=== PATIENT | female | born 1985 | race Caucasian/White ===

== ENCOUNTER 2017-02-07 11:49 | Emergency (ER) | payer BC ==
[~2017-02-07] VITALS: Ht 160 cm; Wt 114.2 kg
[~2017-02-07 11:49] MED LIST: FERR1POW PO; LEVO88TA PO; PREN1TAB29
[2017-02-07 11:55] VITALS: TEMP 37; Ht 160 cm; Wt 114.2 kg
[2017-02-07] MEDS ORDERED: MoRPHine SULFATE 10 MG/ML CARP/VIAL IM STA (12:42)
--- NOTE | 2017-02-07 13:10 | DIAGNOSTIC IMAGING REPORT ---
LUMBAR SPINE 5 VIEWS HISTORY: severe right sided lumbar pain COMPARISON: None. FINDINGS: There is no fracture. No subluxation. Disc spaces are preserved. The sacrum is intact. Cholecystectomy. No evidence for spondylolysis. IMPRESSION: No fracture or subluxation within the lumbar spine. Electronically signed by: Nate Keller M.D. 02/07/2017 1:09 PM Dictated Date/Time: 02/07/2017 1:07 PM
--- NOTE | 2017-02-07 13:17 | EMERGENCY ROOM VISIT NOTE ---
History Report prepared by Lamont: Froilan Godoy Under the Supervision of: Dr. Yuriy Hankins M.D. First contact with patient: 12:36 Chief Complaint: BACK PAIN Stated Complaint: BACK PAIN History of Present Illness The patient is a 31 year old female who presents to the Emergency Room with complaints of constant back pain starting this morning. The patient states that she was carrying her son, and then she got some stabbing pain. She states that she drove to work, and she could not get out of the car. She additionally states that she is having some right leg pain in the back of her thigh. The patient denies any abnormal weight gain or weight loss. Source of History: patient Onset: this morning Position: back Quality: stabbing Timing: constant Note: Associated symptoms: Right leg pain Review of Systems All systems have been listed, reviewed, and are negative other than those previously mentioned. Please see Additional Medical History Sheet. Past Medical & Surgical Surgical Problems: (1) H/O laparoscopic adjustable gastric banding Family History Cancer Diabetes mellitus Heart disease Hypertension Social History Smoking Status: Never Smoker Alcohol Use: occasionally Drug Use: none Marital Status: in relationship Occupation Status: employed Current/Historical Medications Scheduled Ibuprofen Tab (Motrin), 600 MG PO Q6H Levothyroxine Sodium (Synthroid), 88 MCG PO DAILY Scheduled PRN Cyclobenzaprine Hcl (Flexeril), 10 MG PO Q8 PRN for back pain Allergies Coded Allergies: Penicillins (Unverified Allergy, Mild, SWELLING THROAT, 02/07/17) Physical Exam Vital Signs Date Time Temp Pulse Resp B/P Pulse Ox O2 Delivery O2 Flow Rate FiO2 02/07/17 16:00 96 20 136/86 98 02/07/17 15:31 96 20 136/86 98 Room Air 02/07/17 13:53 94 18 131/95 97 Room Air 02/07/17 12:36 95 16 126/86 98 Room Air 02/07/17 11:55 37.0 100 14 141/81 100 Room Air Physical Exam GENERAL: Patient awake, alert, oriented x 3. Patient follows commands. Patient does not appear toxic. Patient is adequately hydrated and well- nourished. SKIN: No erythema, pallor, cyanosis or rash HEENT: Normal head, pupils equal, reactive to light and accommodation. LUNGS: Clear to auscultation. No wheezes, no rales, no rhonchi. HEART: No murmurs. No gallops. No rubs ABDOMEN: Obese with a mid abdominal well healed scar. No masses, no rebound, no hepatomegaly or splenomegaly. BACK: Some tenderness and spasm along the right paravertebral lumbar spine. EXTREMITIES: Straight leg raise is negative bilaterally. Deep tendon reflexes are brisk and equal bilaterally. Motor, sensory, and circulatory function are intact distally to both feet. No signs of trauma. No pedal or pretibial edema. No calf or thigh tenderness. NEUROLOGIC: Cranial nerves II-XII within normal limits. No gross motor sensory function deficits. Medical Decision & Procedures ER Provider Diagnostic Interpretation: X ray results are stated below per my interpretation and the radiologist's interpretation. LUMBAR SPINE 5 VIEWS HISTORY: severe right sided lumbar pain COMPARISON: None. FINDINGS: There is no fracture. No subluxation. Disc spaces are preserved. The sacrum is intact. Cholecystectomy. No evidence for spondylolysis. IMPRESSION: No fracture or subluxation within the lumbar spine. Electronically signed by: Nate Keller M.D. 02/07/2017 1:09 PM Dictated Date/Time: 02/07/2017 1:07 PM Medications Administered Medications (Trade) Dose Ordered Sig/Ammy Route Start Time Stop Time Status Last Admin Dose Admin Morphine Sulfate (MoRPHine SULFATE INJ) 10 mg NOW STAT IM 02/07/17 12:42 02/07/17 12:44 DC 02/07/17 12:50 10 MG Cyclobenzaprine HCl (Flexeril Tab) 10 mg ONE ONCE PO 02/07/17 15:45 02/07/17 15:46 DC 02/07/17 16:01 10 MG ED Course 1236: Past medical records reviewed. The patient was evaluated in room C3. A complete history and physical examination was performed. 1242: Morphine Sulfate 10mg IM 1522: Upon reevaluation, the patient appeared to have improvement of her symptoms. I discussed today's findings with her. She verbalized agreement of the treatment plan. She was discharged home. 1545: Flexeril Tab 10mg PO Medical Decision Nurses notes reviewed. Medical history sheet reviewed. Differential diagnosis includes but is not limited to: muscular strain/spasm, sciatica, ruptured nucleus pulposus, cauda equina syndrome Lumbar x-rays reveal no fracture dislocation or subluxation. Disc spaces appear to be maintained. The patient appears to have muscular spasm along with some possible early degenerative changes. The patient will be placed on ibuprofen and Flexeril. She is to apply heat intermittently. She is to follow- up with her family physician. Impression Primary Impression: Back spasm Scribe Attestation The scribe's documentation has been prepared under my direction and personally reviewed by me in its entirety. I confirm that the note above accurately reflects all work, treatment, procedures, and medical decision making performed by me. Departure Information Dispostion Home / Self-Care Prescriptions Cyclobenzaprine Hcl (FLEXERIL) 10 Mg Tab 10 MG PO Q8 Y for back pain, #20 TAB Prov: Yuriy Hankins M.D. 02/07/17 Ibuprofen Tab (MOTRIN) 600 Mg Tab 600 MG PO Q6H, #30 TAB Prov: Yuriy Hankins M.D. 02/07/17 Referrals No Doctor, Assigned (PCP) Forms HOME CARE DOCUMENTATION FORM, IMPORTANT VISIT INFORMATION, Work Instructions Patient Instructions Back How Works, [facility] Additional Instructions 600 mg of ibuprofen every 6 hours until pain has resolved. One Flexeril every 8 hours as needed for back pain/spasm. Apply heat intermittently to your back over the next 3 days. Avoid any heavy lifting for the next week. Off work today and tomorrow. Do not drive or operate machinery while taking Flexeril.
[2017-02-07] MEDS ORDERED: CYCL10TA6 PO (15:02)
[2017-02-07] MEDS ORDERED: IBUP-1427 PO (15:02)
[2017-02-07] MEDS ORDERED: CYCLOBENZAPRINE HCL 5 MG TAB PO ONE (15:45)
[2017-02-07 16:00] VITALS: BP 136/86; PULSE 96; O2SAT 98
== END 2017-02-07 16:00 | disposition home or self-care (01) ==
LOC: EDBD 11:49 → C.EDC 11:51
DX: M62.830 Muscle spasm of back (principal)

== ENCOUNTER → 2017-03-19 | Outpatient (CLI) | payer BC ==
[~2017-03-19] MED LIST changes: -FERR1POW PO; +IBUP-1427 PO; -PREN1TAB29
--- NOTE | 2017-03-19 14:46 | DIAGNOSTIC IMAGING REPORT ---
MRI LUMBAR SPINE W/O CONTRAST CLINICAL HISTORY: LOWER BACK PAIN L4 RADICULOPATHY TECHNIQUE: Sagittal and axial T1, T2 and STIR images were obtained. COMPARISON STUDY: Conventional radiographic study dated 02/05/2017 OBSERVATIONS: The marrow is slightly heterogeneous in appearance without evidence of a focal mass. L1-2: No disc protrusions or extrusions. No evidence of spinal canal or neural foraminal compromise. L2-3: No disc protrusions or extrusions. No evidence of spinal canal or neural foraminal compromise. L3-4: No disc protrusions or extrusions. No evidence of spinal canal or neural foraminal compromise. L4-5: There is a small central disc protrusion with deformity of the anterior aspect the thecal sac. There is no significant foraminal narrowing L5-S1: There is a small central disc protrusion with deformity of the anterior aspect of the thecal sac. There is no significant foraminal narrowing. The conus medullaris and cauda equina appear normal. IMPRESSION: Central disc protrusions at the L4-5, and L5-S1 levels with secondary mild deformity of the anterior aspect of the thecal sac. Electronically signed by: Drake Mahoney M.D. 03/19/2017 2:45 PM Dictated Date/Time: 03/19/2017 2:42 PM
== END | disposition home or self-care (01) ==
LOC: C.MRIBC 13:36
PROVIDERS: ATTEND Family Medicine
DX: M51.26 Other intervertebral disc displacement, lumbar region (principal); M51.27 Other intervertebral disc displacement, lumbosacral region

== ENCOUNTER → 2017-05-25 | Outpatient (CLI) | payer BC ==
[2017-05-29 12:29] LABS: HERPES SIMPLEX CULT SOURCE GENITAL-VULVA; HERPES SIMPLEX VIRUS CULT NOT ISOLATED (NOT ISOLATED)
== END | disposition home or self-care (01) ==
LOC: C.LABSPEC 13:56
PROVIDERS: ATTEND Obstetrics & Gynecology
DX: N76.2 Acute vulvitis (principal)

== ENCOUNTER → 2017-06-22 | Outpatient (CLI) | payer BC ==
[2017-06-22 12:34] LABS: URINE APPEARANCE CLEAR (CLEAR); URINE BILIRUBIN NEG (NEG); URINE COLOR YELLOW; URINE NITRITE NEG (NEG); URINE PH 6.5 (4.5-7.5); URINE SPECIFIC GRAVITY 1.014 (1.000-1.030); UROBILINOGEN NEG (NEG)
[2017-06-22 12:37] LABS: MANUAL MICROSCOPIC REQUIRED? NO; REVIEW REQ? NO
== END | disposition home or self-care (01) ==
LOC: C.LABSPEC 11:45
PROVIDERS: ATTEND Obstetrics & Gynecology
DX: O99.281 Endocrine, nutritional and metabolic diseases complicating pregnancy, first trimester (principal); Z3A.00 Weeks of gestation of pregnancy not specified

== ENCOUNTER → 2017-06-30 | Outpatient (CLI) | payer BC ==
[2017-06-30 10:03] LABS: BASO % 0.3 %; BASO ABS # 0.03 K/uL (0-0.2); COMPLETE YES; HEMATOCRIT 42.1 % (37-47); IG% 0.5 %; LYMPH % 25.2 %; LYMPH ABS # 2.53 K/uL (1.2-3.4); MEAN CELL VOLUME 85.6 fL (80-100); MEAN CORPUSCULAR HEMOGLOBIN 29.3 pg (25-34); MEAN CORPUSCULAR HGB CONC 34.2 g/dl (32-36); MEAN PLATELET VOLUME 10.5 fL (7.4-10.4); MONO % 6.7 %; NEUT % 65.3 %; PLATELET COUNT 359 K/uL (130-400); RED BLOOD COUNT 4.92 M/uL (4.2-5.4); WHITE BLOOD COUNT 10.02 K/uL (4.8-10.8)
== END | disposition home or self-care (01) ==
LOC: C.LAB 08:25
PROVIDERS: ATTEND Obstetrics & Gynecology
DX: O99.281 Endocrine, nutritional and metabolic diseases complicating pregnancy, first trimester (principal); O26.849 Uterine size-date discrepancy, unspecified trimester

== ENCOUNTER 2017-07-09 06:47 | Day surgery (SDC) | payer BC ==
[~2017-07-09] VITALS: Ht 160 cm; Wt 116.0 kg
[~2017-07-09 06:47] MED LIST changes: +DOXYCYCLINE HYCLATE 100 MG CAP PO SCH; +LACTATED RINGER'S 1000ML 1,000 ML IV SCH
[2017-07-09] MEDS ORDERED: MIDAZOLAM HCL 1 MG/ML 2ML VIAL ONE (06:59)
[2017-07-09] MEDS ORDERED: FENTANYL CITRATE INJ 50 MCG/1 ML 2 ML VIAL ONE (06:59)
[2017-07-09] MEDS ORDERED: FENTANYL CITRATE INJ 50 MCG/1 ML 2 ML VIAL IV PRN (07:30)
[2017-07-09] MEDS ORDERED: SCOPOLAMINE 1.5 MG TDSY TD SCH (07:30)
[2017-07-09] MEDS ORDERED: EpHEDrine SULFATE INJ 50 MG/ML AMP IV PRN (07:30)
[2017-07-09] MEDS ORDERED: ATROPINE SULFATE 0.1 MG/ML 5ML SYR IV PRN (07:30)
[2017-07-09] MEDS ORDERED: HYDROmorphone INJ 1 MG/ML SYR IV PRN (07:30)
[2017-07-09] MEDS ORDERED: PROMETHAZINE HCL INJ 12.5 MG in SODIUM CHLORIDE 0.9% 50ML 50 ML IV PRN (07:30)
[2017-07-09] MEDS ORDERED: ONDANSETRON INJ 2 MG/ML 2 ML VIAL IV PRN (07:30)
[2017-07-09 07:38] VITALS: BP 126/73; PULSE 90; TEMP 37; O2SAT 99; Ht 160 cm; Wt 116.0 kg
[2017-07-09] MEDS ORDERED: CHECK SCOPOLAMINE PATCH PLACEMENT SCH (08:00)
--- NOTE | 2017-07-09 08:33 | History & Physical Bridge Note ---
H&P Re-Evaluation Bridge Note: I have examined the patient, reviewed the History & Physical and in the interval since the performance of the History & Physical I have noted the following changes of clinical significance: No changes noted
[2017-07-09] MEDS ORDERED: METHYLERGONOVINE MALEATE 0.2 MG/ML AMP ONE (09:23)
[2017-07-09] MEDS ORDERED: LACTATED RINGER'S 1000ML 1,000 ML IV SCH (09:40)
--- NOTE | 2017-07-09 09:40 | [facility] Post Operative Brief Note ---
Immediate Operative Summary Operative Date Jul 09, 2017. Pre-Operative Diagnosis Missed Post-Operative Diagnosis Missed Procedure(s) Performed Dilation and Evacuation of Uterine Contents Surgeon Dr. Janice Calero Compliance Assistant Surgeon(s) None Estimated Blood Loss 200ml Findings uterus about 8 weeks size, sounded to 8cm, poc removed. Fluids (cc crystalloids) 1000cc Specimens A. Products of Conception Drains none Anesthesia gett Complication(s) None Disposition Recovery Room / PACU
--- NOTE | 2017-07-09 09:42 | Discharge Instructions ---
Discharge Instructions Date of Service Jul 09, 2017. Visit Reason for Visit: Missed Discharge Discharge Diagnosis / Problem: s/p D&E Discharge Goals Goal(s): Specific goals Activity Recommendations Activity Limitations: per Instructions/Follow-up section Anesthesia . Post Anesthesia Instructions: If you have had General Anesthesia or IV Sedation: * Do not drive today. * Resume driving when surgeon permits. * Do not make important decisions or sign legal documents today. * Call surgeon for: 1. Temperature elevations greater than 101 degrees F. 2. Uncontrollable pain. 3. Excessive bleeding. 4. Persistent nausea and vomiting. 5. Medication intolerance (nausea, vomiting or rash). * For nausea and vomiting use only clear liquids such as: tea, soda, bouillon until nausea subsides, then gradually increase diet as tolerated. * If you have any concerns or questions, call your surgeon's office. If physician is unavailable and it is an emergency, call 911 or go to the nearest emergency room. . Instructions / Follow-Up Instructions / Follow-Up ACTIVITY RECOMMENDATIONS: * Avoid tampons, douching, hot tubs, pools, and intercourse until bleeding has stopped. * May shower as usual. * No strenuous activity for 24-48 hours. After 24-48 hours, you may do anything you feel like doing (driving and sports are okay). SPECIAL CARE INSTRUCTIONS: Special Diet: * Mild nausea may occur in the immediate post-operative period. * Take clear liquids such as tea, cola or bouillon until all nausea has subsided; you may then resume your normal diet. Special Care: * Light bleeding and vaginal spotting can last from a few days to 3-4 weeks. Call your doctor if bleeding becomes heavier than the heaviest part of your period. * Check your temperature twice a day for one week. If it goes above 100.4 degrees Fahrenheit (38.0 Celsius), notify your doctor. * Call your doctor's office for an appointment for 6 weeks after your surgery. FOLLOW-UP VISIT: Call your doctor's office for an appointment for 6 weeks after your surgery. Diet Recommendations Recommended Home Diet: no limitations, resume previous diet Procedures Procedures Performed: Dilation and Evacuation of Uterine Contents Pending Studies Studies pending at discharge: no Medical Emergencies . Who to Call and When: Medical Emergencies: If at any time you feel your situation is an emergency, please call 911 immediately. . Non-Emergent Contact Non-Emergency issues call your: Follow Up Rep . . "Provider Documentation" section prepared by Janice Calero. .
[2017-07-09] MEDS ORDERED: OXYCODONE/ACETAMINOPHEN 5-325 TAB PO PRN ×2 (09:45)
[2017-07-09] MEDS ORDERED: IBUPROFEN 600 MG TAB PO PRN (09:45)
[2017-07-09] MEDS ORDERED: ACETAMINOPHEN 650 MG SUPP PR PRN (09:45)
[2017-07-09] MEDS ORDERED: KETOROLAC TROMETHAMINE 30 MG/ML VIAL IV. PRN ×2 (09:45)
[2017-07-09] MEDS ORDERED: IBUPROFEN 200 MG TAB PO PRN (09:45)
[2017-07-09] MEDS ORDERED: MoRPHine SULFATE 2 MG/ML CARP IV PRN ×2 (09:45)
[2017-07-09] MEDS ORDERED: ACETAMINOPHEN 325 MG TAB PO PRN (09:45)
[2017-07-09] MEDS ORDERED: MoRPHine SULFATE 4 MG/ML 1 ML CARP\\VIAL IV PRN (09:45)
[2017-07-09] MEDS ORDERED: PROPOFOL IV EMULSION 10 MG/ML 20 ML VIAL IV ONE (09:51)
[2017-07-09] MEDS ORDERED: ONDANSETRON INJ 2 MG/ML 2 ML VIAL ONE (09:51)
--- NOTE | 2017-07-09 10:09 | OPERATIVE REPORT ---
DATE OF OPERATION: 07/09/2017 PREOPERATIVE DIAGNOSES: Missed . POSTOPERATIVE DIAGNOSIS: Same. PROCEDURE: D&E. SURGEON: Dr. Calero. ANESTHESIA: General per endotracheal tube. ESTIMATED BLOOD LOSS: 200 mL FLUIDS: 1000 mL. URINE OUTPUT: 100 mL clear yellow urine drained from the bladder at the beginning of the procedure. INDICATIONS: The patient is a 32-year-old 3, para 1-0-1-1, who presented with a threatened AB and 7 days later, she had a repeat ultrasound showing a missed AB. She now presents for definitive surgical therapy. FINDINGS: Uterus on exam under anesthesia, she get the uterus approximately 8 weeks and mobile. There are no appreciable adnexal masses. Uterus sounds to 8 cm. Products of conception returned on procedure. COMPLICATIONS: None. DRAINS: None. DISPOSITION: To recovery room in stable condition. DESCRIPTION OF PROCEDURE: The patient was taken to the operating room where she was identified verbally and by bracelet. She was placed in dorsal supine position where general anesthesia induced without difficulty. She was then placed in dorsal lithotomy position in [employer]-cane stirrups and prepped and draped in normal sterile fashion. Timeout was held identifying correct patient, procedure, positioning and preoperative antibiotics. The bladder was drained of urine. A weighted speculum was placed in the posterior vagina. The anterior lip of the cervix was grasped with a single tooth tenaculum. Uterus sounded to 8 cm, dilated to #29 Hegar dilator using an 8 mm curette. The uterine contents were removed via evacuation and the suction evacuator was passed x3, and then the patient was curettaged in 365 degrees without return of significant material. Evacuation and curette was placed with no further removal of tissue. The procedure was thus terminated. The uterus was massaged and the patient was given 0.2 IM Methergine to control hemostasis. Estimated blood loss 200 mL. All sponge, lap and needle counts were correct x2. The patient tolerated the procedure well and was taken to the recovery room in stable condition. I attest to the content of the Intraoperative Record and any orders documented therein. Any exception s are noted below.
[2017-07-09 10:25] VITALS: BP 124/85; PULSE 85; TEMP 36.5; O2SAT 100
[2017-07-09 11:05] VITALS: BP 110/73; PULSE 87; TEMP 36.5; O2SAT 100
--- NOTE | 2017-07-09 11:06 | Anesthesiology Progress Note ---
Anesthesia Post Op Note Date & Time Jul 09, 2017 at 11:06 Vital Signs Pain Intensity: 0 Vital Signs Past 12 Hours Date Time Temp Pulse Resp B/P (MAP) Pulse Ox O2 Delivery O2 Flow Rate FiO2 07/09/17 10:30 36.8 82 16 124/75 100 Room Air 07/09/17 10:20 36.8 78 16 118/67 100 Room Air 07/09/17 10:10 36.8 79 12 130/69 100 Room Air 07/09/17 10:00 98 12 122/70 100 Oxymask 10 07/09/17 09:50 93 12 120/87 100 Oxymask 10 07/09/17 09:40 36.5 109 12 125/84 100 Oxymask 10 07/09/17 07:38 37 90 18 126/73 (90) 99 Room Air Notes Mental Status: alert / awake / arousable, participated in evaluation Pt Amnestic to Procedure: Yes Nausea / Vomiting: adequately controlled Pain: adequately controlled Airway Patency, RR, SpO2: stable & adequate BP & HR: stable & adequate Hydration State: stable & adequate Anesthetic Complications: no major complications apparent
[2017-07-09] MEDS ORDERED: DOXYCYCLINE HYCLATE 100 MG CAP PO SCH (11:30)
== END 2017-07-09 11:25 | disposition home or self-care (01) ==
LOC: C.ACU 06:47
PROVIDERS: ATTEND Obstetrics & Gynecology
DX: O02.1 Missed abortion (principal); E03.9 Hypothyroidism, unspecified; E66.9 Obesity, unspecified; Z90.49 Acquired absence of other specified parts of digestive tract; Z80.0 Family history of malignant neoplasm of digestive organs

== ENCOUNTER → 2017-08-06 | Outpatient (CLI) | payer BC ==
[~2017-08-06] MED LIST changes: -DOXYCYCLINE HYCLATE 100 MG CAP PO SCH; -LACTATED RINGER'S 1000ML 1,000 ML IV SCH
== END | disposition home or self-care (01) ==
LOC: C.LAB1850 11:52
PROVIDERS: ATTEND Obstetrics & Gynecology
DX: Z32.01 Encounter for pregnancy test, result positive (principal)

== ENCOUNTER → 2017-08-08 | Outpatient (CLI) | payer BC | END | disposition home or self-care (01) | LOC: C.LAB1850 16:48 | PROVIDERS: ATTEND Obstetrics & Gynecology | DX: Z32.01 Encounter for pregnancy test, result positive (principal) ==

== ENCOUNTER → 2017-08-31 | Outpatient (CLI) | payer BC ==
[~2017-08-31] MED LIST changes: -IBUP-1427 PO
== END | disposition home or self-care (01) ==
LOC: C.LAB 17:54
PROVIDERS: ATTEND Obstetrics & Gynecology
DX: O02.1 Missed abortion (principal)

== ENCOUNTER → 2018-03-27 | Outpatient (CLI) | payer BC ==
--- NOTE | 2018-03-27 13:05 | DIAGNOSTIC IMAGING REPORT ---
SOFT TISS HEAD/NECK-THYROID HISTORY: Goiter GOITER,NON TOXIC SINGLE THYROID NODULE COMPARISON: 2014 FINDINGS: Right lobe: Maximum dimension 5.8 cm. 3.2 x 1.8 cm heterogeneous lower pole nodule. This is unchanged compared to 2014 Left lobe: Maximum dimension 4.4 cm. No significant nodularity. Isthmus: No nodules. IMPRESSION: Dominant nodule lower aspect right thyroid essentially unchanged compared to a study of 2014 The above report was generated using voice recognition software. It may contain grammatical, syntax or spelling errors. Electronically signed by: Adin Singh M.D. 03/27/2018 1:03 PM Dictated Date/Time: 03/27/2018 1:00 PM
== END | disposition home or self-care (01) ==
LOC: C.ULTR 11:57
PROVIDERS: ATTEND Physician Assistant
DX: E04.1 Nontoxic single thyroid nodule (principal); E03.9 Hypothyroidism, unspecified

== ENCOUNTER → 2018-06-15 | Outpatient (CLI) | payer BC | END | disposition home or self-care (01) | LOC: C.LAB 08:16 | PROVIDERS: ATTEND Internal Medicine Endocrinology, Diabetes & Metabolism | DX: E03.9 Hypothyroidism, unspecified (principal) ==

== ENCOUNTER → 2018-07-02 | Outpatient (CLI) | payer BC | END | disposition home or self-care (01) | LOC: C.PAPS 14:02 | PROVIDERS: ATTEND Obstetrics & Gynecology | DX: N76.2 Acute vulvitis (principal); Z01.419 Encounter for gynecological examination (general) (routine) without abnormal findings ==

== ENCOUNTER 2021-03-07 11:22 | Inpatient (IN) ==
--- NOTE | 2021-02-18 15:44 | PAT Medication Instructions ---
Medication Instructions Date of Service February 18, 2021 Home Medications atorvastatin 40 mg PO QAM ibuprofen 800 mg PO Q6H PRN levothyroxine 75 mcg PO QAM multivitamin 1 tab PO QAM ASK your surgeon for instructions ibuprofen 800 mg PO Q6H PRN DO NOT take the morning of surgery multivitamin 1 tab PO QAM Take morning of surgery With a small sip of water, OTHERWISE NOTHING TO EAT OR DRINK AFTER MIDNIGHT: atorvastatin 40 mg PO QAM levothyroxine 75 mcg PO QAM Other Notes If you have any questions please call us at [phone] or [phone] or [phone] or [phone]
--- NOTE | 2021-02-22 11:15 | Anesthesiology Consultation ---
Date of Service February 22, 2021 Assessment & Plan (1) Encounter for pre-operative examination: - COVID screening: Per assessment on 02/22: Travel screen negative, no known COVID-19 positive contacts or current COVID-19 related symptoms. Surgeon arranging preop COVID testing (scheduled 02/28; [facility]). Awaiting results. - Check test AM DOS Chart Review Chart Review: Acceptable Risk for Surgery and Patient seen in Pre Admission Testing Teaching & Discussion Pre-Anesthesia Teaching/Discussion Notes: Instructed NPO after midnight before surgery,except medications with 15 cc of water. Medication instructions p rovided according to the PAT guidelines. History Surgery Operation Date: 03/07/21 07:45 Proposed Procedures p L5-S1 Decompression Fusion, Spinal Cord Monitoring - Panda Garrett DO Height/Weight Height: 5 ft 3 in Weight: 126.3 kg Allergies Allergy/AdvReac Type Severity Reaction Status Date / Time Penicillins Allergy Mild Throat Verified 02/22/21 11:13 swelling Medications Home Medications Medication Instructions Recorded Confirmed Last Taken atorvastatin 40 mg PO QAM 01/31/21 01/31/21 Unknown ibuprofen 800 mg PO Q6H PRN 01/31/21 01/31/21 Unknown levothyroxine 75 mcg PO QAM 01/31/21 01/31/21 Unknown multivitamin 1 tab PO QAM 01/31/21 01/31/21 Unknown Past Medical History Medical History Anxiety Degenerative disc disease Depression History of migraine Hyperlipidemia Hypothyroidism Morbid obesity Exercise / Class Metabolic Activity II 4-5 Yardwork/Stairs/Walk up hill Past Family History Family History Father Colorectal cancer Mother Hypercholesterolemia Hypertension Denies family history of Ovarian cancer Breast cancer Past Surgical History Surgical History H/O discectomy lumbar History of cholecystectomy History of tooth extraction S/P cholecystectomy S/P dilation and curettage S/P gastric surgery adjustable gastric band placement > subsequent removal S/P tonsillectomy Past Anesthesia History No Hx of Anesthesia Complications (except PONV) and No Family Hx of Anesthesia Complications History of PONV History of PONV (no issue when hx of PONV known beforehand (?pre-treatment)) and Hx of Motion Sickness (+ in back seat of cars) Social History Smoking Status: Never smoker Do You Dip or Chew Tobacco: No Hx Alcohol Use: Yes Alcohol type: hard liquor alcohol intake frequency: holidays/special occasions only Hx Substance Use: Yes substance use type: marijuana Substance Use Type Other:: Medical [employer] card (no use since ) Review of Systems + snoring. No apnea events. Patient denies chest pain, shortness of breath, dyspnea on exertion, fever, chills, cough, wheezing, palpitations. Physical Exam Vital Signs VITALS BP 118/77 P 85 TEMP 983 SP02 97%RA RESP 16 PHYSICAL Full cervical extension range of motion. Full TMJ range of motion. TMD 4 finger breaths Mallampati Score 1 Dentition: missing molar Lungs: clear throughout to auscultation Cardiac: regular rate and rhythm, no murmurs noted Spine: normal Extremities: no edema Thick neck Testing Laboratory Results 02/22/21 11:30 02/22/21 11:30 PT 10.0 Seconds (9.0-12.0) 02/22/21 11:30 INR 1.0 (0.9-1.1) 02/22/21 11:30 APTT 24.8 Seconds (21.0-31.0) 02/22/21 11:30 Urine Color Yellow 02/22/21 11:30 Urine Appearance Clear (Clear) 02/22/21 11:30 Urine pH 7.5 (4.5-7.5) 02/22/21 11:30 Ur Specific [place] 1.011 (1.000-1.030) 02/22/21 11:30 Urine Protein Negative (Negative) 02/22/21 11:30 Urine Glucose (UA) Negative (Negative) 02/22/21 11:30 Urine Ketones Negative (Negative) 02/22/21 11:30 Urine Nitrite Negative (Negative) 02/22/21 11:30 Ur Leukocyte Esterase Negative (Negative) 02/22/21 11:30 Blood Type A Positive 02/22/21 11:30 Antibody Screen NEGATIVE 02/22/21 11:30 Electrocardiogram Date: 10/04/20 Findings: + NSR @ (87) Chest X-Ray Date: 02/22/21 Findings: + NAD
--- NOTE | 2021-02-22 12:06 | XRay Report ---
XR chest Pre-admission PA/Lat CLINICAL HISTORY: Preoperative evaluation. COMPARISON STUDY: Chest radiograph November 09, 2018. FINDINGS: Lung volumes are normal. Lungs are clear. There is no pneumothorax or pleural effusion. Car diac size is normal. Mediastinal contours are normal. There is no evidence for pulmonary edema. IMPRESSION: No acute cardiopulmonary findings. ACT 112: Negative or not required by law. Electronically signed by: Arsenio June M.D. 02/22/2021 12:05 PM
[2021-02-22 13:06] LABS: Basophils # (auto) 0.03 K/uL (0-0.2); Basophils % (auto) 0.3 %; Eosinophils # (auto) 0.22 K/uL (0-0.5); Eosinophils % (auto) 2.5 %; Hematocrit (blood only) 40.6 % (37-47); Hemoglobin 13.6 g/dL (12.0-16.0); Immature Granulocytes # (auto) 0.03 K/uL (0.00-0.02); Immature Granulocytes % (auto) 0.3 %; Lymphocytes # (auto) 2.72 K/uL (1.2-3.4); Mean Corpuscular Hemoglobin 28.5 pg (25-34); Mean Corpuscular Hgb Conc 33.5 g/dL (32-36); Mean Corpuscular Volume 84.9 fL (80-100); Mean Platelet Volume 9.8 fL (7.4-10.4); Monocytes # (auto) 0.66 K/uL (0.11-0.59); Monocytes % (auto) 7.5 %; Neutrophils # (auto) 5.11 K/uL (1.4-6.5); Neutrophils % (auto) 58.4 %; Platelet Count 441 K/uL (130-400); RDW Coefficient of Variation 13.5 % (11.5-14.5); RDW Standard Deviation 42.1 fL (36.4-46.3); Red Blood Count 4.78 M/uL (4.2-5.4); White Blood Count 8.77 K/uL (4.8-10.8)
[2021-02-22 13:11] LABS: Appearance Urine Clear (Clear); Bilirubin Urine Negative (Negative); Blood Urine Negative (Negative); Color Urine Yellow; Glucose Urine UA Negative (Negative); Ketones Urine Negative (Negative); Leukocyte Esterase Urine Negative (Negative); Nitrite Urine Negative (Negative); Protein Urine Negative (Negative); Specific Gravity Urine 1.011 (1.000-1.030); Urobilinogen Urine Negative (Negative); pH Urine 7.5 (4.5-7.5)
[2021-02-22 13:17] LABS: BUN Creatinine Ratio 14.1 (10-20); Calcium 8.5 mg/dl (8.5-10.1); Creatinine Clr Calc Pharmacy 116.8 ml/min; Est GFR (Non-African American) 86.3; Partial Thromboplastin Ratio 0.9; Partial Thromboplastin Time 24.8 Seconds (21.0-31.0); Potassium 4.1 mmol/L (3.5-5.1)
[~2021-03-07 11:22] MED LIST changes: +ACETAMINOPHEN 1000 MG/100 ML IV IV ONE; +ACETAMINOPHEN 500 MG TAB PO SCH; +CLINDAMYCIN 600 MG/54 ML BAG IV SCH; +CeleBREX 200 MG CAP PO SCH; +FAMOTIDINE/PF 20 MG/2 ML VIAL IV ONE; +GABAPENTIN 900 MG DOSE PO SCH; -LEVO88TA PO; +LR 15ML/HR IV SCH
--- NOTE | 2021-03-07 13:02 | History & Physical Bridge Note ---
Date of Service March 07, 2021 History & Physical Bridge Note I have examined the patient, reviewed the History & Physical and in the interval since the performance of the History & Physical I have noted the following changes of clinical significance: no changes noted
--- NOTE | 2021-03-07 13:04 | History & Physical Report ---
Date of Service March 07, 2021 Assessment & Plan (1) Lumbar disc herniation with radiculopathy: Admission and Anticipated Discharge Date Admission Date: L5-S1 decompression fusion History of Present Illness Chief Complaint: Back and left leg pain Primary Care Provider: Carli Reynaga MD This is a 35-year-old female who presents with current persistent back and leg pain. Failing course of nonoperative care is here for surgical invention. Allergies Allergy/AdvReac Type Severity Reaction Status Date / Time Penicillins Allergy Mild Throat Verified 03/07/21 11:43 swelling Home Medications Medication Instructions Recorded Confirmed Type atorvastatin 40 mg PO QAM 01/31/21 03/07/21 History ibuprofen 800 mg PO Q6H PRN 01/31/21 03/07/21 History levothyroxine 75 mcg PO QAM 01/31/21 03/07/21 History multivitamin 1 tab PO QAM 01/31/21 03/07/21 History Past Med/Surg History Medical History Anxiety Degenerative disc disease Depression History of migraine Hyperlipidemia Hypothyroidism Morbid obesity Surgical History H/O discectomy lumbar History of cholecystectomy History of tooth extraction S/P cholecystectomy S/P dilation and curettage S/P gastric surgery adjustable gastric band placement > subsequent removal S/P tonsillectomy Family History Father Colorectal cancer Mother Hypercholesterolemia Hypertension Denies family history of Ovarian cancer Breast cancer Social History Smoking Status: Never smoker Second Hand Exposure: Yes (IN PAST); Do You Dip or Chew Tobacco: No; Tobacco Cessation Education Requested by Patient: No Hx Alcohol Use: Yes Alcohol type: hard liquor Hx Substance Use: Yes Substance Use Type Other:: Medical [employer] card (no use since ) Preferred Language: Bulgarian Communication Ability: Effective Medical Writer Required: No Beliefs That Will Affect Care: None Current Living Situation: Spouse Other Information That Helps Us Care for You: No Feels Safe at Home: Yes Safety Concerns: Feels Safe At This Time Assistive Devices: Glasses Physical Exam Physical Exam: Patient's alert and oriented Heart regular rhythm Lungs clear to auscultation Results & Data ([facility]) Vital Signs (Past 12 Hours) Vital Signs Temp Pulse Resp BP Pulse Ox 03/07/21 11:49 37 C 106 H 20 156/89 H 97
[2021-03-07] MEDS ORDERED: BUPIVACAINE/EPINEPHRINE 0.5% MPF 1:200,000 30 ML VIAL ONE (13:17)
[2021-03-07] MEDS ORDERED: BACITRACIN INJ 50,000 UNIT VIAL ONE (13:18)
[2021-03-07] MEDS ORDERED: GLYCOPYRROLATE 0.2 MG/ML VIAL ONE (13:20)
[2021-03-07] MEDS ORDERED: SUCCINYLCHOLINE CHLORIDE 20 MG/ML 10 ML VIAL IV ONE (13:20)
[2021-03-07] MEDS ORDERED: ONDANSETRON INJ 2 MG/ML 2 ML VIAL ONE (13:20)
[2021-03-07] MEDS ORDERED: NEOSTIGMINE METHYLSULFATE 1 MG/ML 10ML VIAL ONE (13:20)
[2021-03-07] MEDS ORDERED: LIDOCAINE HCL 2% 2 ML VIAL/AMP(20MG/ML) INFIL ONE (13:20)
[2021-03-07] MEDS ORDERED: ePHEDrine sulfate 50 MG/ML AMP ONE (13:20)
[2021-03-07] MEDS ORDERED: DEXAMETHASONE SOD INJ 4 MG/ML VIAL ONE (13:20)
[2021-03-07] MEDS ORDERED: PHENYLEPHRINE HCL 10 MG/ML VIAL ONE (13:20)
[2021-03-07] MEDS ORDERED: fentaNYL citrate 100 MCG/2 ML VIAL ONE (13:20)
[2021-03-07] MEDS ORDERED: MIDAZOLAM HCL 1 MG/ML 2ML VIAL ONE (13:20)
[2021-03-07] MEDS ORDERED: PROPOFOL IV EMULSION 10 MG/ML 20 ML VIAL IV ONE (13:20)
[2021-03-07] MEDS ORDERED: METOCLOPRAMIDE HCL INJ 5 MG/ML 2 ML VIAL ONE (13:28)
[2021-03-07] MEDS ORDERED: SCOPOLAMINE 1 MG TDSY TD ONE (13:31)
[2021-03-07] MEDS ORDERED: HYDROmorphone INJ 2 MG/ML SYR/VIAL ONE (14:05)
[2021-03-07] MEDS ORDERED: FLOSEAL HEMOSTATIC MATRIX 10ML TOP ONE (15:13)
--- NOTE | 2021-03-07 15:28 | Fluoroscopy Report ---
INTRAOPERATIVE RADIOGRAPHS CLINICAL HISTORY: L5-S1 spinal fusion. Fluoroscopy time: 29 seconds. FINDINGS: 2 spot fluoroscopic views of the lumbar spine are presented. There has been discectomy at L 5-S1 with laminectomy and posterior fusion at this level. Interpedicular screws are in place. The ort hopedic hardware appears intact. IMPRESSION: Intraoperative images from L5-S1 spinal fusion as above. Electronically signed by: David Sanchez M.D. 03/07/2021 3:26 PM
--- NOTE | 2021-03-07 15:29 | Operative Report ---
Post Operative Report Pre & Post Diagnosis Operation Date: 03/07/21 12:55 Pre-Op Diagnosis: Recurrent lumbar disc herniation with radiculopathy Morbid obesity Post-Op Diagnosis: Same I identified the patient and participated in the time-out.: Yes Procedure Operation Date: 03/07/21 12:55 Actual Procedures #1 revision decompression with bilateral medial facetectomies and foraminotomies L5-S1. #2 posterior spinal fusion L5-S1. #3 placement posterior instrumentation L5-S1. #4 interbody fusion L5-S1. #5 placed a peek cage 11 x 22 mm at L5-S1. #6 placement locally harvested morselized autograft in the posterior gutters. #7 placement of I factor in the interbody space and infuse combined with master graft in the posterior lateral gutters. Surgeon Panda Garrett, DO Director Of Institutional Research Grecia Farias Estimated Blood Loss 50 Findings See Below The patient is 5 foot 3 inches tall weighing over 124 kg with a BMI in excess of 48. The patient's body habitus did add significant technical difficulty requiring her deepest retractors longus instruments in order to perform her procedure. This added at least 50% increase to the operative time. Specimens None Indications This is a 35-year-old female who presents with above-mentioned diagnosis after failing course of nonoperative care is here for the above-mentioned procedure. Description of Procedure Patient was met with identified informed consent obtained. Patient was then taken to the operative suite underwent a patient placed in a prone position the Miguelito table atop the Gideon frame. All bony prominences well-padded eyes inspected to ensure no external pressure placed upon the. This point the lumbar spine was prepped and draped in normal sterile fashion. Sharp dissection with the assistance of Bovie cautery performed down to and exposing the remaining lamina transverse processes of L5 and S1 level bilaterally. From a caudal cephalad fashion revision complete laminectomy of L5 was performed including bilateral medial facetectomies and foraminotomies addressing all stenosis. I also identified the recurrent disc herniation on the left. This is removed in its entirety. Pedicle screws and plates in L5 and S1 levels bilaterally with assistance of fluoroscopy and the proper sized bianca placed. By way the transforaminal approach on the left complete discectomy was performed endplates curetted to subcortically bone and an 11 x 22 mm peek cage filled with I factor tapped in position. The rods were then locked in final position bilaterally. The transverse processes of L5 and the sacral ala burred to subcortical bleeding bone. Infuse collagen sponge, master graft and local autograft placed in the posterior lateral gutters. 15 round [place] drain inserted. The incision was then closed with 1 Vicryl in the fascia 2-0 Vicryl subcutaneously and 4 Monocryl for final skin closure. Steri-Strip sterile dressings placed. Patient will continue PACU stable condition. Please note spinal cord monitoring was utilized throughout the procedure no changes noted. Lastly Grecia Farias was present at the entire surgery involved the patient positioning complex portions of the surgery and final skin closure. I attest to the content of the Intraoperative Record and any orders documented therein. Any exceptions are noted below.
[2021-03-07] MEDS ORDERED: ACETAMINOPHEN 500 MG TAB PO PRN (16:41)
[2021-03-07] MEDS ORDERED: ONDANSETRON 4 MG OD TAB PO PRN (16:41)
[2021-03-07] MEDS ORDERED: LORazepam 0.5 MG TAB PO PRN (16:41)
[2021-03-07] MEDS ORDERED: bisacodyL 10 MG SUPP PR PRN (16:41)
[2021-03-07] MEDS ORDERED: METOCLOPRAMIDE HCL INJ 5 MG/ML 2 ML VIAL IV PRN (16:41)
[2021-03-07] MEDS ORDERED: ONDANSETRON INJ 2 MG/ML 2 ML VIAL IV PRN (16:41)
[2021-03-07] MEDS ORDERED: MAGNESIUM HYDROXIDE SUSP 30 ML UDC PO PRN (16:41)
[2021-03-07] MEDS ORDERED: ACETAMINOPHEN 1,000 MG/100 ML VIAL IV PRN (16:41)
[2021-03-07] MEDS ORDERED: HYDROmorphone INJ 0.5 MG/0.5 ML SYR IV PRN (16:41)
[2021-03-07] MEDS ORDERED: hydrOXYzine HCl 25 MG TAB PO PRN (16:41)
[2021-03-07] MEDS ORDERED: SOD PHOSPHATE/SOD BIPHOSPHATE ENEMA 132 ML BTL PR PRN (16:41)
[2021-03-07] MEDS ORDERED: FAMOTIDINE 20 MG TAB PO PRN (16:41)
[2021-03-07] MEDS ORDERED: PROMETHAZINE HCL 12.5 MG in SODIUM CHLORIDE 0.9% 50 ML IV PRN (16:41)
[2021-03-07] MEDS ORDERED: diphenhydrAMINE Capsule 25 MG CAP PO PRN (16:41)
[2021-03-07] MEDS ORDERED: NALOXONE HCL 0.4 MG/1 ML VIAL/CARP IV PRN (16:41)
[2021-03-07] MEDS ORDERED: DO NOT ADMINISTER FLU VACCINE PRN (16:41)
[2021-03-07] MEDS ORDERED: ALUMINUM/MAGNESIUM SUSP 30 ML UDC PO PRN (16:41)
[2021-03-07] MEDS ORDERED: DO NOT ADMINISTER PNEUMOCOCCAL VACCINE PRN (16:41)
[2021-03-07] MEDS ORDERED: HYDROmorphone INJ 1 MG/ML SYRINGE IV PRN (16:41)
[2021-03-07] MEDS ORDERED: traMADol HCL 50 MG TABLET PO PRN (16:41)
[2021-03-07] MEDS ORDERED: LORazepam 0.5 MG/1 ML VIAL IV PRN (16:41)
--- NOTE | 2021-03-07 16:45 | Anesthesiology Progress Note ---
Date of Service March 07, 2021 Anesthesia Post Procedure Vital Signs Vital Signs: Temp Pulse Pulse Resp BP BP Pulse Ox 03/07/21 16:30 36.2 C L 97 H 15 109/44 L 96 03/07/21 16:20 105 H 19 155/83 H 97 03/07/21 16:10 97 H 16 148/84 H 99 03/07/21 16:00 103 H 13 111/54 L 100 03/07/21 15:51 36.1 C L 102 H 17 134/72 100 03/07/21 11:49 37 C 106 H 20 156/89 H 97 Pain Intensity Bilateral Lower Back: Pain Intensity: 6 Lower Back: Pain Intensity: 3 Transfer of Care Handoff Completed per policy Notes Mental Status: alert / awake / arousable and participated in evaluation Patient Amnestic to Procedure: Yes Nausea / Vomiting: adequately controlled Pain: adequately controlled Airway Patency, RR, SpO2: stable & adequate BP & HR: stable & adequate Hydration State: stable & adequate Anesthetic Complications: no major complications apparent
[2021-03-07] MEDS: LACTATED RINGER'S 1,000 ML IV SCH ×2 (16:51→23:15)
[2021-03-07] MEDS ORDERED: PHARMACY GLYCEMIC MGMT CONSULT PRN (17:25)
[2021-03-07] MEDS ORDERED: GLUCOSE 40% GEL 15 GM TUBE PO PRN (17:30)
[2021-03-07] MEDS ORDERED: GLUCOSE 10 TABS/TUBE PO PRN (17:30)
[2021-03-07] MEDS ORDERED: GLUCAGON FOR INJ 1 MG VIAL IM PRN (17:30)
[2021-03-07] MEDS ORDERED: DEXTROSE 50% 50 ML SYRINGE IV PRN (17:30)
[2021-03-07] MEDS ORDERED: CARBOHYDRATES FOR HYPOGLYCEMIA PO PRN (17:30)
[2021-03-07] MEDS ORDERED: INSULIN ASPART 100 UNITS/ML 3 ML PEN SC SCH (17:35)
--- NOTE | 2021-03-07 17:44 | Hospitalist Consultation ---
Date of Consultation March 07, 2021 Assessment & Plan (1) Lumbar disc herniation with radiculopathy: as per primary service DVT proph: as per primary service (2) Hyperlipidemia: cont statin. (3) Hypothyroidism: cont levothyroxine. (4) Morbid obesity: recommend lifestyle modification History of Present Illness Reason for Consultation: recurrent lumbar disc herniation with radiculopathy Attending Physician: Panda Garrett DO History of Present Illness Patient is admitted for Recurrent lumbar disc herniation with radiculopathy. S/P.#1 revision decompression with bilateral medial facetectomies and foraminotomies L5-S1. #2 posterior spinal fusion L5-S1. #3 placement posterior instrumentation L5-S1. #4 interbody fusion L5-S1. #5 placed a peek cage 11 x 22 mm at L5-S1. #6 placement locally harvested morselized autograft in the posterior gutters. #7 placement of I factor in the interbody space and infuse combined with master graft in the posterior lateral gutters. Patient has PMH of dyslipidemia and hypothyroidism. She has no significant PMH. Allergies Allergy/AdvReac Type Severity Reaction Status Date / Time Penicillins Allergy Mild Throat Verified 03/07/21 11:43 swelling Home Medications Medication Instructions Recorded Confirmed Type atorvastatin 40 mg PO QAM 01/31/21 03/07/21 History ibuprofen 800 mg PO Q6H PRN 01/31/21 03/07/21 History levothyroxine 75 mcg PO QAM 01/31/21 03/07/21 History multivitamin 1 tab PO QAM 01/31/21 03/07/21 History Patient History Medical History Anxiety Degenerative disc disease Depression History of migraine Hyperlipidemia Hypothyroidism Morbid obesity Surgical History H/O discectomy lumbar History of cholecystectomy History of tooth extraction S/P cholecystectomy S/P dilation and curettage S/P gastric surgery adjustable gastric band placement > subsequent removal S/P tonsillectomy Family History Father Colorectal cancer Mother Hypercholesterolemia Hypertension Denies family history of Ovarian cancer Breast cancer Social History Smoking Status: Never smoker Second Hand Exposure: Yes (IN PAST); Do You Dip or Chew Tobacco: No; Tobacco Cessation Education Requested by Patient: No Hx Alcohol Use: Yes Alcohol type: hard liquor Hx Substance Use: Yes Substance Use Type Other:: Medical stoney card (no use since ) Preferred Language: Mohawk Communication Ability: Effective Electro Plater Required: No Beliefs That Will Affect Care: None marital status: Current Living Situation: Spouse Other Information That Helps Us Care for You: No Feels Safe at Home: Yes Safety Concerns: Feels Safe At This Time Assistive Devices: None Review of Systems Constitutional: no sweats and no malaise Eyes: no blind spots and no discharge Ear, Nose, Mouth, Throat: no ear trauma and no tinnitus Respiratory: no cough and no dyspnea Cardiovascular: no chest pain, no chest pain with activity and no dyspnea at rest Gastrointestinal: no abdominal pain, no bloating and no early satiety Genitourinary: no dysuria and no urinary hesitancy Musculoskeletal: no radicular pain and no deformity Integumentary: no rash and no lesions Neurologic: no paralysis Psychiatric: no hopelessness and no change in appetite Hematologic / Lymphatic: no lymphadenopathy Physical Exam Constitutional: WD/WN, vitals as above Eyes: PERRL, conjunctivae normal, anicteric sclerae ENMT: external ear and nose normal, oropharynx normal Neck: trachea midline, no thyromegaly Respiratory: normal respiratory effort, lungs clear to auscultation Cardiovascular: RRR, no murmur, no edema Gastrointestinal (Abdomen): normal bowel sounds, soft, nontender, no hepatosplenomegaly Musculoskeletal: no cyanosis or clubbing, extremities motor strength 5/5 Skin: no rashes, warm and dry Neurologic: PERRL, EOMI, accommodation nl, no face palsy, no dysarthria Psychiatric: A+Ox3, euthymic affect Results & Data Results & Data ([facility]) Vital Signs (Past 12 Hours) Vital Signs Temp Pulse Pulse Resp BP BP Pulse Ox 03/07/21 17:12 111 H 18 134/77 99 03/07/21 16:40 36.6 C 96 H 18 148/79 H 97 03/07/21 16:30 36.2 C L 97 H 15 109/44 L 96 03/07/21 16:20 105 H 19 155/83 H 97 03/07/21 16:10 97 H 16 148/84 H 99 03/07/21 16:00 103 H 13 111/54 L 100 03/07/21 15:51 36.1 C L 102 H 17 134/72 100 03/07/21 11:49 37 C 106 H 20 156/89 H 97 PG Care Time/CCT Total # of Minutes Spent Total Time Spent with Patient: Total time spent is greater than 50% in coordination of care (as documented) at patient's floor/unit and/or counseling patient: Coding Level of Care Code 58299 Inpt Consult Level 3 Diagnoses Lumbar disc herniation with radiculopathy M51.16 Hyperlipidemia E78.5 Hypothyroidism E03.9 Morbid obesity E66.01
[2021-03-07] MEDS: KETOROLAC 30 MG/ML VIAL IV SCH ×2 (17:57→23:46)
[2021-03-07] MEDS ORDERED: Nursing to Pharmacy Communication SCH (18:00)
[2021-03-07] MEDS: CLINDAMYCIN 600 MG in DEXTROSE 5% 50 ML IV SCH (20:59)
[2021-03-07] MEDS: DOCUSATE SODIUM/SENNA 50/8.6MG TAB PO SCH (21:13)
[2021-03-08] MEDS: KETOROLAC 30 MG/ML VIAL IV SCH ×2 (05:35→12:18)
[2021-03-08] MEDS: POLYETHYLENE (MIRALAX) 17 GM PACK PO SCH ×3 (05:35→17:19)
[2021-03-08] MEDS: CLINDAMYCIN 600 MG in DEXTROSE 5% 50 ML IV SCH (05:35)
[2021-03-08] MEDS: LEVOTHYROXINE SODIUM 75 MCG TABLET PO SCH (06:20)
[2021-03-08] MEDS: LACTATED RINGER'S 1,000 ML IV SCH (06:23)
[2021-03-08 07:59] LABS: Basophils # (auto) 0.01 K/uL (0-0.2); Basophils % (auto) 0.1 %; Hematocrit (blood only) 39.6 % (37-47); Hemoglobin 13.4 g/dL (12.0-16.0); Immature Granulocytes # (auto) 0.06 K/uL (0.00-0.02); Immature Granulocytes % (auto) 0.3 %; Lymphocytes # (auto) 1.69 K/uL (1.2-3.4); Lymphocytes % (auto) 8.6 %; Mean Corpuscular Hemoglobin 28.9 pg (25-34); Mean Corpuscular Hgb Conc 33.8 g/dL (32-36); Mean Corpuscular Volume 85.3 fL (80-100); Mean Platelet Volume 9.7 fL (7.4-10.4); Monocytes # (auto) 1.08 K/uL (0.11-0.59); Monocytes % (auto) 5.5 %; Neutrophils # (auto) 16.81 K/uL (1.4-6.5); Neutrophils % (auto) 85.5 %; Platelet Count 471 K/uL (130-400); RDW Coefficient of Variation 13.7 % (11.5-14.5); RDW Standard Deviation 42.9 fL (36.4-46.3); Red Blood Count 4.64 M/uL (4.2-5.4); White Blood Count 19.65 K/uL (4.8-10.8)
[2021-03-08 08:30] LABS: BUN Creatinine Ratio 10.7 (10-20); Calcium 8.7 mg/dl (8.5-10.1); Creatinine Clr Calc Pharmacy 87.7 ml/min; Est GFR (African American) 71.4; Est GFR (Non-African American) 61.6; Potassium 3.6 mmol/L (3.5-5.1)
[2021-03-08] MEDS: ATORVASTATIN 40 MG TAB PO SCH (08:43)
[2021-03-08] MEDS: MULTIVITAMIN TAB PO SCH (08:43)
[2021-03-08] MEDS: HEPARIN SOD 5,000 UNIT/0.5 ML VIAL SQ SCH ×2 (08:43→21:20)
[2021-03-08 09:02] LABS: Estimated Average Glucose 114 mg/dl; Hemoglobin A1C 5.6 % (4.5-5.6)
--- NOTE | 2021-03-08 09:35 | Orthopedic Progress Note ---
Date of Service March 08, 2021 Assessment & Plan (1) Lumbar disc herniation with radiculopathy: Admission and Anticipated Discharge Date Admission Date: March 07, 2021 This time we will continue physical therapy monitor [place] output and begin subcutaneous heparin twice daily and hopefully discharge home in the next few days. Subjective Back pain controlled leg pain improved Physical Exam Physical Exam: Patient is ambulating halls. She is concerned to testing. Appears comfortable. Results & Data ([facility]) Vital Signs (Past 12 Hours) Vital Signs Temp Pulse Resp BP Pulse Ox 03/08/21 07:33 37.6 C H 97 H 16 119/75 98 03/08/21 03:17 37.3 C 86 18 132/77 97 03/07/21 22:00 36.8 C 92 H 16 116/75 93
[2021-03-08] MEDS: oxyCODONE HCL IR 5 MG TAB (IMMEDIATE RELEASE) PO PRN (18:35)
[2021-03-08] MEDS: DOCUSATE SODIUM/SENNA 50/8.6MG TAB PO SCH (21:20)
--- NOTE | 2021-03-08 22:16 | Hospitalist Progress Note ---
Date of Service March 08, 2021 Assessment & Plan (1) Lumbar disc herniation with radiculopathy: as per primary service WBC likely reactive to surgery as patient is feeling well and has no new complaints. Vital signs are also normal. DVT proph: as per primary service (2) Hyperlipidemia: cont statin. (3) Hypothyroidism: cont levothyroxine. (4) Morbid obesity: recommend lifestyle modification will sign off case. will call medicine team if any further questions or assistance. Admission and Anticipated Discharge Date Admission Date: March 07, 2021 Subjective Patient reports feeling well. She has no new complaints. Review of Systems Review of Systems: All systems reviewed & are unremarkable except as noted in HPI & below Physical Exam Constitutional: WD/WN, vitals as above Eyes: PERRL, conjunctivae normal, anicteric sclerae ENMT: external ear and nose normal, oropharynx normal Neck: trachea midline, no thyromegaly Respiratory: normal respiratory effort, lungs clear to auscultation Cardiovascular: RRR, no murmur, no edema Gastrointestinal (Abdomen): normal bowel sounds, soft, nontender, no hepat osplenomegaly Musculoskeletal: no cyanosis or clubbing, extremities motor strength 5/5 Skin: no rashes, warm and dry Neurologic: PERRL, EOMI, accommodation nl, no face palsy, no dysarthria Psychiatric: A+Ox3, euthymic affect Results & Data Results & Data ([facility]) Vital Signs (Past 12 Hours) Vital Signs Temp Pulse Pulse Resp BP Pulse Ox 03/08/21 18:38 37.0 C 03/08/21 14:59 37.1 C 79 16 102/64 98 03/08/21 10:41 36.6 C 85 16 113/65 98 PG Care Time/CCT Total # of Minutes Spent Total Time Spent with Patient: Total time spent is greater than 50% in coordination of care (as documented) at patient's floor/unit and/or counseling patient: Coding Level of Care Code 45936 Subseq Hosp Care Lvl 2 Diagnoses Lumbar disc herniation with radiculopathy M51.16 Hyperlipidemia E78.5 Hypothyroidism E03.9 Morbid obesity E66.01 Time Spent (min) 25
[2021-03-09] MEDS: POLYETHYLENE (MIRALAX) 17 GM PACK PO SCH ×2 (00:08→06:06)
[2021-03-09] MEDS: oxyCODONE HCL IR 5 MG TAB (IMMEDIATE RELEASE) PO PRN ×2 (03:39→09:01)
[2021-03-09] MEDS: LEVOTHYROXINE SODIUM 75 MCG TABLET PO SCH (06:06)
[2021-03-09] MEDS: ATORVASTATIN 40 MG TAB PO SCH (08:53)
[2021-03-09] MEDS: MULTIVITAMIN TAB PO SCH (08:54)
[2021-03-09] MEDS: HEPARIN SOD 5,000 UNIT/0.5 ML VIAL SQ SCH (08:54)
[2021-03-09] MEDS ORDERED: dexAMETHasone 8 MG in SYRINGE 0 ML IV SCH (09:00)
[2021-03-09 09:28] LABS: Alanine Aminotransferase 15 U/L (12-78); Albumin Level 2.6 gm/dl (3.4-5.0); Aspartate Aminotransferase 10 U/L (15-37); BUN Creatinine Ratio 13.3 (10-20); Blood Urea Nitrogen 12 mg/dl (7-18); Calcium 8.5 mg/dl (8.5-10.1); Carbon Dioxide 28 mmol/L (21-32); Chloride 109 mmol/L (98-107); Creatinine Clr Calc Pharmacy 113.3 ml/min; Est GFR (African American) 97.3; Glucose 80 mg/dl (70-99); Potassium 3.7 mmol/L (3.5-5.1); Sodium 141 mmol/L (136-145)
[2021-03-09 09:34] LABS: Alkaline Phosphatase 63 U/L (45-117); Bilirubin Direct < 0.1 mg/dl (0-0.2); Bilirubin,Total 0.2 mg/dl (0.2-1); Total Protein 6.6 gm/dl (6.4-8.2)
--- NOTE | 2021-03-09 10:05 | Discharge Summary ---
Date of Service March 09, 2021 Admission HPI Per Admitting Provider This is a 35-year-old female who presents with current persistent back and leg pain. Failing course of nonoperative care is here for surgical invention. Principal Diagnosis Recurrent discrimination L5-S1 Discharge Data Allergies Allergy/AdvReac Type Severity Reaction Status Date / Time Penicillins Allergy Mild Throat Verified 03/07/21 11:43 swelling Consultations 03/07/21 16:41 Consult Hospitalist Routine Procedures Performed Operation Date: 03/07/21 12:55 Actual Procedures p L5-S1 Decompression Fusion with Insertion of Interbody, Application of Bone Morphogenetic Protein, Spinal Cord Monitoring(Not Applicable) - Panda Garrett DO Ordered Studies 03/07/21 12:55 FL lumbar spine 2-3V Routine Hospital Course (1) Lumbar disc herniation with radiculopathy: Patient underwent revision decompression fusion tolerated so was taken to orthopedic for postoperative. Postop day 1 she was up and ambulating progressed appropriately postop day #2. At X strength testing. [place] drain decreasing appropriately. Pain well controlled. Socially discharged home. Discharge orders instructions from the chart for further review. Total Time Total Time Spent Total Time Spent (In Minutes): 20 minutes Discharge Plan Discharge Items Patient Disposition: Home - Self-Care Reason For Visit: Spondylosis with Radiculopathy, Lumbar Region Discharge Diagnosis: Recurrent dyskinesia with radiculopathy Activity: As commented below Non-emergency contact: Primary Care Provider Call non-emergency contact if: you have any medication questions Follow-up/Referrals: Carli Reynaga MD [Primary Care Provider] - Diet: Regular Addtl Attending Provider Instructions: ACTIVITY RECOMMENDATIONS: SELF CARE INSTRUCTIONS AFTER THORACIC/LUMBAR FUSIONS 1. You may walk to your tolerance. It is good exercise for your legs and back. Expect some back and intermittent leg aches and pains. 2. You may perform "counter-top" level activities (make a sandwich, trung with a project, etc.). 3. No bending or lifting of more than 10 pounds or back twisting of any nature (roll like a log when turning in bed). 4. You may ride in a car for 20-30 minutes at a time. No driving until after your first visit with your doctor. 5. Frequent changes of position and restricting sitting to 30 minutes at a time will help limit the amount of back spasms and stiffness you may experience. 6. You may discontinue the use of ambulatory aids (cane, crutches, etc.) once your strength and confidence allow. 7. You may cyber instructor the shower and let water strike your incision when you arrive home at least once daily. Do not take a tub bath, sit in a hot tub or go into a swimming pool until after your first recheck in the office. SPECIAL CARE INSTRUCTIONS: VERY IMPORTANT TO READ AND REVIEW A. Your surgical incision has been closed with a cosmetic suture under the skin that will dissolve in about 6 weeks. In 14 days, you can use a pair of clean scissors and cut the suture that is left outside of the skin at the ends of your incision. 1. The small skin tapes can be removed 7 days after surgery if they have not fallen off by that point. 2. You may keep the wound open to air as much as possible to promote healing after post-op day number 5 unless told otherwise by your doctor. 3. If you think the wound looks like it is becoming infected (redness or worsening drainage) and/or you are experiencing fever, chill or worsening back pain and muscle spasms, contact the office so that we may evaluate you as soon as possible. B. Complications are uncommon, but please contact us if you have any signs or symptoms of: 1. wound infection (fever higher than 102.5 degrees F, redness, separation of wound, drainage, or increasing pain from the incision) 2. blood clots in legs (pain, swelling, redness and warmth in legs) 3. urinary tract infection (fever higher than 102.5 degrees F, burning upon urination or increased frequency of urination) 4. nerve problems (inability to walk on your toes or heels, numbness, loss of bowel or bladder control) 5. any other symptoms that concern you C. Please call the office at if you have any concerns or questions about your operation or recovery. D. No smoking! Smoking drastically decreases the chance of a solid fusion. E. Do not take any anti-inflammatory medications (Indocin, Advil, Motrin, Aspirin, Naprosyn, etc.) as these may inhibit the chance of a solid fusion. Tylenol is okay to take for pain. MANAGING PAIN AFTER SPINAL SURGERY 1. Narcotic medication is intended for short-term use and will be provided for surgical pain. Surgical pain usually lasts for a period of 4-6 weeks. Narcotic medication includes Percocet, Vicodin, Darvocet, Tylenol #3 or Lortab. 2. Longer-term pain is more appropriately treated with non-narcotic medication such as Tylenol ES. 3. Muscle spasm is not appropriately treated with narcotics. Muscle relaxers such as Soma, Flexeril or Skelaxin can be used along with Tylenol ES. 4. Remember that we all live with some "aches and pains". This is not unusual or uncommon after an injury or as we get older. a. Back pain is expected and may include muscle spasms for 4 to 6 weeks after surgery. The pain should gradually improve. If the pain worsens for no apparent reason, please contact the office. b. Intermittent leg pain may also be experienced and should not be concerned about unless it worsens for no apparent reason. If so, please contact the office. 5. We will provide appropriate medication within the normal guidelines of their prescribed use. We will also be very cautious and aware of potential abuse and extended duration of patients' medication needs. a. Pain medications are for your comfort and to assist with sleep and rest so that the tissue can heal. They are not provided in order to return to normal activity and should not be used through the day. To do so or worsening pain at night can result from ongoing tissue damage and development of tolerance to the prescribed medicine. 6. Please allow 2-3 days to process refills. Prescriptions will not be mailed but must be picked up at the office. FOLLOW UP VISIT: Keep your scheduled follow-up appointment. Any questions, please call the office at . Pending Studies at Discharge: No Stand-Alone Forms: [facility], Smoking Cessation Medications and DC Order Prescriptions: New tramadol 50 mg tablet 50 mg PO Q6H PRN (Reason: pain, moderate) Qty: 30 RF: 0 oxycodone 5 mg tablet 5 mg PO Q6H PRN (Reason: pain, severe) Qty: 30 RF: 0 Continued multivitamin Tablet 1 tab PO QAM RF: 0 atorvastatin 40 mg Tablet 40 mg PO QAM RF: 0 levothyroxine 75 mcg Tablet 75 mcg PO QAM RF: 0 Discontinued ibuprofen 200 mg Tablet 800 mg PO Q6H PRN (Reason: Pain) RF: 0 Discharge Orders: Discharge Order (Routine); Ordered 03/09/21 Ordered By: Panda Garrett Admission Data Admit Date/Time: 03/07/21 16:08 Attending Provider: Panda Garrett Admit Provider: Panda Garrett Primary Care Provider: Carli Reynaga Other Providers: Chris Braswell
== END 2021-03-09 11:24 | disposition home or self-care (01) | DRG 454 ==
LOC: ASU 11:22 → 3E 16:08